=== PATIENT | female | born 1995 ===

== ENCOUNTER 2018-02-19 16:22 | Emergency (ER) | payer OTHER ==
[2018-02-19 16:43] VITALS: BP 117/71; PULSE 85; RESP 18; TEMP 98.7; O2SAT 99
--- NOTE | 2018-02-19 18:17 | ED PDOC ---
HPI: General Adult Time Seen by Provider: 02/19/18 17:01 Chief Complaint (Nursing): Abdominal Pain Chief Complaint (Provider): Groin pain History Per: Patient History/Exam Limitations: no limitations Onset/Duration Of Symptoms: Days (yesterday) Have you had recent travel within the past 21 days to any of the following countries: [place], [place], [place] or [place]?: No Current Symptoms Are (Timing): Still Present Additional Complaint(s): Pt. with left groin pain. Feels a lump that is painful. No dc or redness. No weakness. No back pain, dysuria. No vaginal dc. No nausea, vomit, diarrhea. Pt. also has a cyst on labia external that is going on for a very long time. Mild pain but same as usual. Had purulent dc yesterday from it. No internal labia issues. Gets cysts frequently. Past Medical History Reviewed: Nursing Documentation, Vital Signs Vital Signs: Last Vital Signs Temp 98.7 F 02/19/18 16:38 Pulse 85 02/19/18 16:38 Resp 18 02/19/18 16:38 BP 117/71 02/19/18 16:38 Pulse Ox 99 02/19/18 18:41 - Medical History PMH: Depression, Hypothyroidism Denies: Chronic Kidney Disease Other PMH: pilonadal and other cysts - Family History Family History: States: Unknown Family Hx - Social History Alcohol: None Drugs: Denies - Immunization History Hx Tetanus Toxoid Vaccination: Yes Hx Influenza Vaccination: Yes Hx Pneumococcal Vaccination: No - Home Medications Home Medications: Ambulatory Orders Medication Instructions Recorded Cephalexin [cephalexin] 500 mg PO QID 7 Days cap 02/19/18 Ciprofloxacin HCl [Cipro] 250 mg PO BID #6 tab 02/19/18 - Allergies Allergies/Adverse Reactions: Allergies Allergy/AdvReac Type Severity Reaction Status Date / Time hager Allergy ITCHING Verified 02/19/18 16:37 Review of Systems ROS Statement: Except As Marked, All Systems Reviewed And Found Negative Genitourinary Female: Positive for: Other (labia pain; left groin pain) Physical Exam - Reviewed Nursing Documentation Reviewed: Yes Vital Signs Reviewed: Yes - Physical Exam Appears: Positive for: Well, Non-toxic, No Acute Distress Head Exam: Positive for: ATRAUMATIC, NORMAL INSPECTION, NORMOCEPHALIC ENT: Positive for: Normal ENT Inspection Neck: Positive for: Normal, Painless ROM Cardiovascular/Chest: Positive for: Regular Rate, Rhythm Respiratory: Positive for: CNT, Normal Breath Sounds Gastrointestinal/Abdominal: Positive for: Soft. Negative for: Tenderness (no tenderness to left groin; palpable 0.5cm approx diam lymph node; no erythema, induration, fluctuant area.) Pelvic Exam: Positive for: Other (chaperoned by Juani green; pt. with small follicultis on external left labia of 1cm diameter with mild tender, no fluctuance, no dc, no induration; no internal labia issues) Back: Positive for: Normal Inspection. Negative for: L CVA Tenderness, R CVA Tenderness Extremity: Positive for: Normal ROM Neurologic/Psych: Positive for: Alert, Oriented - ECG O2 Sat by Pulse Oximetry: 99 Pulse Ox Interpretation: Normal - Other Rad US X-Ray: Read By Radiologist X-Ray Interpretation: lymph nodes - Progress ED Course And Treament: 1839: Will ultrasound L groin for soft tissue eval. 1935: Stable. AAOx3. Pain controlled. Fu with pcp. Disposition - Clinical Impression Clinical Impression: Lymph node symptom, Folliculitis, UTI (urinary tract infection) - Patient ED Disposition Is Patient to be Admitted: No Counseled Patient/Family Regarding: Studies Performed, Diagnosis, Need For Followup, Rx Given - Disposition Referrals: [facility] [Outside] - 02/20/18 [facility] [Outside] - 02/20/18 Disposition: Routine/Home Disposition Time: 19:35 Condition: FAIR Additional Instructions: Return if not better in 3 days. Prescriptions: Cephalexin [cephalexin] 500 mg PO QID 7 Days cap Ciprofloxacin HCl [Cipro] 250 mg PO BID #6 tab Instructions: Folliculitis (DC), Urinary Tract Infection, Adult (DC) Forms: [employer] (Hebrew)
--- NOTE | 2018-02-19 18:50 | US ---
PROCEDURE: Ultrasound soft tissue left inguinal region HISTORY: pain L groin; eval cyst vs. abscess COMPARISON: None TECHNIQUE: Standard protocol for this study/examination. FINDINGS: Multiple left inguinal lymph nodes morphologically unremarkable, the largest 1.1 x 1.7 x 1.8 cm. IMPRESSION: No drainable collection, sinus tract. Multiple morphologically unremarkable left inguinal lymph nodes.
[2018-02-19 19:09] LABS: SQUAMOUS EPITHIAL 3 /hpf (0-5); URINE BACTERIA RARE (<OCC); URINE BILIRUBIN NEGATIVE (NEGATIVE); URINE BLOOD NEGATIVE (NEGATIVE); URINE CLARITY SLIGHTY-CLOUDY (Clear); URINE COLOR YELLOW (YELLOW); URINE GLUCOSE (UA) NEG (Normal); URINE LEUKOCYTE ESTERASE LARGE Leu/uL (Negative); URINE PROTEIN NEGATIVE (NEGATIVE); URINE UROBILINOGEN 0.2-1.0 mg/dL (0.2-1.0)
== END 2018-02-19 20:07 | disposition home or self-care (01) ==
LOC: H.ER 16:22
DX: L73.9 Follicular disorder, unspecified (principal); R59.9 Enlarged lymph nodes, unspecified; N39.0 Urinary tract infection, site not specified; E03.9 Hypothyroidism, unspecified; F32.9 Major depressive disorder, single episode, unspecified